=== PATIENT | female | born 1985 | race Caucasian/White ===

== ENCOUNTER 2016-07-31 12:06 | Emergency (ER) | payer OTHER ==
[2016-07-31 12:26] VITALS: BP 139/84; PULSE 77; RESP 18; TEMP 97.9
--- NOTE | 2016-07-31 12:37 | ED ---
Fall HPI - General Chief Complaint: Fall Stated Complaint: fall in shower, hips and rt arm pain Time Seen by Provider: 07/31/16 12:19 Source: patient Mode of arrival: ambulatory - History of Present Illness Initial Comments: Patient is a 31-year-old female chief complaint of bilateral hip pain and right upper arm pain after she fell shower. Site of most of her will body weight when she fell. Patient states that she did not hit her head and denies any loss of consciousness. Patient reports that she drove an hour to work and was sitting at her job at work when she noticed that her hip pain became unbearable. Patient denies any significant bruising over her hips. Patient states that she is able to walk denies any changes in urination or bowel movement. She reports that she has difficulty abducting her right arm. She denies any tenderness with palpation over the clavicle or shoulder. Patient reports that she's had no previous fractures or injuries such as this. - Related Data Home Medications Medication Instructions Recorded Confirmed ALPRAZolam [Xanax] 0.5 mg PO DAILY PRN 07/31/16 07/31/16 Previous Rx's Medication Instructions Recorded Cyclobenzaprine [Flexeril] 10 mg PO TID #15 tab 07/31/16 Allergies Allergy/AdvReac Type Severity Reaction Status Date / Time No Known Allergies Allergy Verified 07/31/16 12:43 Review of Systems ROS Statement: Those systems with pertinent positive or pertinent negative responses have been documented in the HPI. ROS Other: All systems not noted in ROS Statement are negative. Past Medical History Past Medical History: No Reported History History of Any Multi-Drug Resistant Organisms: None Reported Past Surgical History: Orthopedic Surgery Additional Past Surgical History / Comment(s): PT STATES "I HAVE HAD SURGERY TO PUT PINS IN MY FINGER." Past Psychological History: No Psychological Hx Reported Smoking Status: Current every day smoker Past Alcohol Use History: Occasional Past Drug Use History: None Reported General Exam - General Exam Comments Initial Comments: Well-appearing 31-year-old female. Patient is ambulating. No distress. Limitations: no limitations General appearance: alert, in no apparent distress Head exam: Present: atraumatic, normocephalic, normal inspection Eye exam: Present: normal appearance, PERRL, EOMI. Absent: scleral icterus, conjunctival injection, periorbital swelling ENT exam: Present: normal exam, normal oropharynx, mucous membranes moist, TM's normal bilaterally Neck exam: Present: normal inspection. Absent: tenderness, meningismus, lymphadenopathy Respiratory exam: Present: normal lung sounds bilaterally. Absent: respiratory distress, wheezes, rales, rhonchi, stridor Cardiovascular Exam: Present: regular rate, normal rhythm, normal heart sounds. Absent: systolic murmur, diastolic murmur, rubs, gallop, clicks GI/Abdominal exam: Present: soft, normal bowel sounds. Absent: distended, tenderness, guarding, rebound, rigid Extremities exam: Present: normal inspection, full ROM, normal capillary refill. Absent: tenderness, pedal edema, joint swelling, calf tenderness Back exam: Present: normal inspection Neurological exam: Present: alert, oriented X3, CN II-XII intact Psychiatric exam: Present: normal affect, normal mood Skin exam: Present: warm, dry, intact, normal color. Absent: rash Course Vital Signs 07/31/16 12:23 Temperature 97.9 F Pulse Rate 77 Respiratory 18 Rate Blood Pressure 139/84 O2 Sat by Pulse 100 Oximetry Medical Decision Making - Medical Decision Making Patient is a 31-year-old female chief complaint of right shoulder and hip pain after falling the shower. Patient has mild contusion over the upper arm. X- rays reviewed and show no evidence of any acute abnormalities. Patient be discharged with a few muscle relaxers instructed to follow-up with primary care provider symptoms continue persist. Patient also be given a referral for orthopedic. Discuss apply heat and ice over the shoulders and hips. Discussed taking a warm bath with Epsom salts. Patient understands treatment plan will comply. Return parameters were discussed. - Radiology Data Radiology results: report reviewed X-rays reviewed and are negative for any acute process. Disposition Clinical Impression: Contusion of right arm, Contusion, hip Disposition: HOME SELF-CARE Condition: Good Instructions: Fall Prevention for Older Adults (ED) Additional Instructions: Patient advised to rest, apply heat and ice over the areas. Take muscle relaxers as prescribed as well as Motrin and Tylenol. Follow-up with primary care provider if symptoms continue to persist as well as orthopedic physician and shoulder obtained by after one week. Prescriptions: Cyclobenzaprine [Flexeril] 10 mg PO TID #15 tab Referrals: Misbah Guzman MD [Primary Care Provider] - 1-2 days Enoc Goldman MD [STAFF PHYSICIAN] - 1-2 days Time of Disposition: 13:14
--- NOTE | 2016-07-31 12:58 | XR ---
EXAMINATION TYPE: XR humerus RT DATE OF EXAM: 07/31/2016 12:54 PM COMPARISON: NONE HISTORY: Pain post fall The osseous structures are intact and the joint spaces are preserved. IMPRESSION: 1. No acute fracture or dislocation.
--- NOTE | 2016-07-31 12:59 | XR ---
EXAMINATION TYPE: XR pelvis AP view DATE OF EXAM: 07/31/2016 12:54 PM COMPARISON: NONE HISTORY: Pain The osseous structures are intact and the joint spaces are preserved. No acute fracture is seen. Vi sualized bowel gas pattern is nonspecific. Arthropathy of the hips noted. Correlate for femoral aceta bular impingement. Question bilateral acetabular labral tear. Finding appears chronic. IMPRESSION: 1. No acute fracture.
== END 2016-07-31 13:27 | disposition home or self-care (01) ==
LOC: EC 12:06
DX: S70.02XA Contusion of left hip, initial encounter (principal); S70.01XA Contusion of right hip, initial encounter; S40.021A Contusion of right upper arm, initial encounter; F17.200 Nicotine dependence, unspecified, uncomplicated; W18.30XA Fall on same level, unspecified, initial encounter; Y92.89 Other specified places as the place of occurrence of the external cause
CPT/HCPCS: 72170; 99283

== ENCOUNTER → 2016-11-22 | Outpatient (CLI) | payer OTHER ==
--- NOTE | 2016-11-22 16:13 | US ---
EXAMINATION TYPE: US pelvis complete transvag DATE OF EXAM: 11/22/2016 COMPARISON: 11/04/2014 CLINICAL HISTORY: 32-year-old female Pelvic pain R10.2 Menorrhagia N92.0. Patient states having gener alized pelvic pain TECHNIQUE: Transvaginal (TV) and Transabdominal (TA) Date of LMP: 11/15/2016, FINDINGS: Uterus: Anteverted measuring 9.5 x 5.4 x 4.3 cm. The myometrium is heterogeneous. No focal fibroid. A cervical nabothian cyst. Endometrial Stripe: 1.1 cm, mildly thickened for day 7 of the menstrual cycle. Right Ovary: 3.5 x 2.3 x 2.1 cm with a 2.0 cm oval hypoechoic lesion that could represent a follicle with hemorrhage or a corpus luteal cyst. Left Ovary: 2.8 x 2.1 x 2.3 cm with follicular change. No evident adnexal abnormality or cul-de-sac free fluid. IMPRESSION: 1. The endometrial stripe (1.1 cm) is thickened for day 7 of the menstrual cycle. 2. Myometrial heterogeneity could represent diffuse small fibroid change or adenomyosis. 3. Follicular change in both ovaries. A 2 cm follicle/cyst in the right ovary probably has some inter nal hemorrhage.
== END | disposition home or self-care (01) ==
LOC: RADUSWWP 15:29
PROVIDERS: ATTEND Obstetrics & Gynecology
DX: R93.8 Abnormal findings on diagnostic imaging of other specified body structures (principal)
CPT/HCPCS: 76830; 76856

== ENCOUNTER → 2017-01-09 | Outpatient (CLI) | payer OTHER ==
[2017-01-09 12:55] LABS: Basophils % (A) 0 %; CH 28.9; Eosinophils # (A) 0.2 k/uL (0-0.7); Eosinophils % (A) 2 %; HDW 2.22; HGB 13.6 gm/dL (11.4-16.0); Luc # (Auto) 0.17; Luc % (Auto) 2; Lymphocytes # (A) 2.3 k/uL (1.0-4.8); Lymphocytes % (A) 25 %; MCH 29.2 pg (25.0-35.0); MCHC 33.2 g/dL (31.0-37.0); MCV 87.8 fL (80.0-100.0); Mean Platelet Volume 7.5; Monocytes # (A) 0.5 k/uL (0-1.0); Monocytes % (A) 5 %; Neutrophils # (A) 6.2 k/uL (1.3-7.7); Neutrophils % (A) 66 %; RBC 4.67 m/uL (3.80-5.40); RDW 12.5 % (11.5-15.5); WBC 9.4 k/uL (3.8-10.6)
== END | disposition home or self-care (01) ==
LOC: LABPAT 12:13
PROVIDERS: ATTEND Obstetrics & Gynecology
DX: Z01.812 Encounter for preprocedural laboratory examination (principal)
CPT/HCPCS: 85025

== ENCOUNTER 2017-01-11 06:40 | Day surgery (SDC) | payer OTHER ==
[2017-01-09 12:41] VITALS: BMI 33.5
[~2017-01-11 06:40] MED LIST: DEXAMETHASONE SOD PHOSPHATE 10 MG/ML 1 ML VIAL IV ONE; HYDROmorphone 1 MG/ML 1 ML SYRINGE IVP PRN; LACTATED RINGERS 1,000 ML IV SCH; ONDANSETRON 4 MG/2 ML VIAL IVP ONE; Pre Op ABX Message 1 EACH MISC MISCELLANE ONE
[2017-01-11] MEDS ORDERED: LIDOCAINE 1% 20 ML VIAL (10MG/ML) FOR IV START INTRADERMA ONE (07:08)
[2017-01-11] MEDS ORDERED: SUCCINYLCHOLINE CHLORIDE 100 MG/5 ML SYR IV ONE (07:50)
[2017-01-11] MEDS ORDERED: ROCURONIUM BROMIDE 10 MG/ML 10 ML VIAL IV ONE (07:50)
[2017-01-11] MEDS ORDERED: PROPOFOL 10 MG/ML 20 ML VIAL IV ONE (07:50)
[2017-01-11] MEDS ORDERED: fentaNYL (PF) 50 MCG/ML 2 ML AMP ONE (07:50)
[2017-01-11] MEDS ORDERED: MIDAZOLAM 2 MG/2 ML VIAL ONE (07:50)
--- NOTE | 2017-01-11 07:52 | P.HPOB ---
History of Present Illness H&P Date: 01/11/17 Chief Complaint: Pelvic pain Monet is a 31-year-old female with a history of very painful. Symptoms include intense abdominal pain and bloating. She's noted the symptoms have worsened over the last several months and she had a pelvic ultrasound that was generally unremarkable. Due to the cyclicity of her symptoms and that she has been on control pills over a year in no changes in symptoms as well as no change with NSAIDs we're concerned for possibility of endometriosis. She is set scheduled for a diagnostic laparoscopy possible da Bhargav assisted for endometriosis/pelvic pain and treatment of same. Risks/benefits/alternatives to this procedure were discussed with the patient in detail and all questions were answered for her prior to proceeding to the operating room. On physical exam vital signs are stable and afebrile. Heart regular, lungs clear, extremities without pain. Osteopathic exams unremarkable. Abdomen is soft and essentially nontender. Pelvic exam is generally unremarkable other than generalized tenderness. Assessment chronic pelvic pain. Plan diagnostic laparoscopy possible ablation and/or excision of endometriosis. Past Medical History Past Medical History: No Reported History Additional Past Medical History / Comment(s): endometriosis History of Any Multi-Drug Resistant Organisms: None Reported Past Surgical History: Orthopedic Surgery Additional Past Surgical History / Comment(s): PT STATES "I HAVE HAD SURGERY TO PUT PINS IN MY FINGER." Past Anesthesia/Blood Transfusion Reactions: No Reported Reaction Past Psychological History: Anxiety Smoking Status: Current every day smoker Past Alcohol Use History: Occasional Past Drug Use History: None Reported - Past Family History Mother Family Medical History: Cancer Medications and Allergies Home Medications Medication Instructions Recorded Confirmed Type No Known Home Medications [No 01/09/17 01/09/17 History Known Home Medications] Allergies Allergy/AdvReac Type Severity Reaction Status Date / Time No Known Allergies Allergy Verified 01/09/17 12:28 Exam Osteopathic Statement: *. No significant issues noted on an osteopathic structural exam other than those noted in the History and Physical/Consult. - Vital Signs Vital signs: Vital Signs Temp Pulse Resp BP Pulse Ox 01/11/17 06:50 98.2 F 76 16 118/65 98
[2017-01-11] MEDS ORDERED: BUPIVACAINE (PF) 0.25% 30 ML VIAL SQ ONE (08:19)
[2017-01-11] MEDS ORDERED: METHYLENE BLUE 10 MG/ML 1 ML VIAL INJ ONE (08:47)
[2017-01-11] MEDS ORDERED: SODIUM CHLORIDE 0.9% 50 ML with ceFAZolin 2,000 MG IV ONE ×2 (08:54)
[2017-01-11] MEDS ORDERED: ONDANSETRON 4 MG/2 ML VIAL IVP PRN (09:07)
[2017-01-11] MEDS ORDERED: SIMETHICONE 80 MG CHEWABLE PO PRN (09:07)
[2017-01-11] MEDS ORDERED: diphenhydrAMINE 50 MG/ML 1 ML VIAL IVP PRN (09:07)
[2017-01-11] MEDS ORDERED: KETOROLAC 30 MG/ML 1 ML VIAL IVP PRN (09:07)
[2017-01-11] MEDS ORDERED: HYDROcodone/APAP 5-325MG 1 EACH TAB PO PRN ×2 (09:08)
[2017-01-11] MEDS ORDERED: LACTATED RINGERS 1,000 ML IV ONE ×2 (09:09→10:18)
--- NOTE | 2017-01-11 09:17 | P.OP ---
Date of Procedure: 01/11/17 Preoperative Diagnosis: Pelvic pain Postoperative Diagnosis: Same with endometriosis, adhesions, and mild hydrosalpinx Procedure(s) Performed: Diagnostic laparoscopy with da Bhargav assisted with lysis of adhesions, like a full duration of endometriosis, drainage of hydrosalpinx, and chromotubation of fallopian tubes Anesthesia: ARSENIO Surgeon: Jose Solis Estimated Blood Loss (ml): 5 Pathology: other (Endometriosis) Condition: stable Disposition: floor Operative Findings: Significant adhesions and endometriosis are noted. There was endometriosis in multiple implants attached to the anterior uterus and omentum as well as with the left fallopian tube which also had a hydrosalpinx. It is also noted that the right ovary had significant adhesions to the periaortic appendiceal fat and bowel area which were bluntly dissected Description of Procedure: Patient was taken to the operating suite where a general anesthetic was found be adequate. She was prepped and draped in normal sterile fashion placed in dorsal lithotomy position. Initially a speculum was inserted into the vagina cervix was grasped with a Allis clamp sounded and a kroner manipulator was inserted without difficulty. Once this was placed a rubber rubber cath was placed to drain the bladder of urine and the Allis and speculum were removed. Gloves were then changed and attention was turned to the abdominal portion procedure where approximately 2 mL of quarter percent Marcaine was injected very umbilically. Through this injected anesthetic a 5 mm skin incision was made and through this incision under direct visualization with an optical trocar and sleeve the camera was inserted. Once peritoneal placement was assured gas was left fully insufflate the abdomen and patient's placement steep Trendelenburg position. Initially another 5 mm skin incision was made in the left lateral area of the abdomen approximately 10 cm from the umbilicus and slightly inferior to the umbilicus a second port and sleeve were inserted through this incision and observations the pelvis were made. Significant scarring and endometrial implants were noted connecting the omentum to the anterior round ligament area on the left side of her uterus as well as a hydrosalpinx on the left fallopian tube. There is also scarring of bowel to the ovarian complex. We were able to elevate the uterus and then inspected the posterior cul-de-sac which grossly appeared devoid of endometrial implants. Right side however had the periovarian complex area and fallopian tube attached to the periappendiceal fat the appendix however did not appear to have any infection or perforation it just appeared the periappendiceal fat attached to the ovarian complex due to these findings we did incise a second incision site on the right side of the abdomen across from the left incision and 8 mm da Bhargav ports were placed through these incisions. Camera port was then replaced with a da Bhargav port and the Robot was brought in and docked. At this point I broke scrub and went to the robot uterus was then elevated and using blunt dissection and notable sharp dissection the adhesion to the round ligament and omentum were dissected free. Blunt dissection of this tissue was much possible was done to completely free the adhesion. Small hydrosalpinx was noted and using a scissor and electrocautery a stab incision was made to drain this hydrosalpinx. Once this was accomplished blunt dissection of the remainder of the ovary away from the bowel was completed without difficulty. At this point uterus was rotated to the left-hand side and attention was turned to the right portion of the uterus and ovary. Due to proximity to the bowel and appendix as well as the ovary the scissor was removed and a cardia grasper was used to assist in bluntly dissecting the parous appendiceal fat and appendix away from the right ovary and underlying sigmoid colon. This was done in a very gentle fashion to maintain the integrity of both bowel and the appendix. Once it was completely dissected free and due to some tortuosity to both fallopian tubes and hydrosalpinx a dilute methylene blue dye was injected for chromotubation of fallopian tubes. Only a few cc was injected and the dye was noted easily coming through both fallopian tubes indicating patency. With this being concluded and seeing no bleeding from omentum periappendiceal fat or ovarian tissue areas instruments were removed. Due to the fact we did not have an speech and language assistant port we undocked the robot and took it out of the operative field and then suction irrigation completely of the pelvis was completed under laparoscopic guidance. Due to no bleeding being noted and once pelvis was completely irrigated all instruments were removed and gas was allowed to expel from the abdomen. 5 deep breaths were provided during this process and the trochars were then removed. 4-0 Vicryl was then used to close the incision subcuticularly and the remaining 7 mL of quarter percent Marcaine was injected around these incisions. Due to the complexity of the case will plan to admit patient at least for observational status post afternoon may be keeping her until tomorrow depending on how her pain levels are. Sponge, lap, needle counts were all correct 2. Patient was then taken to the recovery room in stable and satisfactory condition.
[2017-01-11] MEDS: MEPERIDINE 50 MG/ML SYRINGE IVP ONE ×2 (09:37→09:45)
[2017-01-11] MEDS ORDERED: KETOROLAC 30 MG/ML 1 ML VIAL IVP ONE (09:40)
[2017-01-11 11:21] VITALS: RESP 16
--- NOTE | 2017-01-11 16:48 | P.DS ---
Providers Expected date of discharge: 01/11/17 Attending physician: Jose Solis Primary care physician: Stated None Hospital Course: Monet is doing very well postop day 0. We did keep her to monitor her as the had a little bit more extensive repair during her surgery due to endometriosis than was initially expected. She is done very well her pain is well-controlled and will plan to discharge her home this evening. Her vital signs are stable and she is afebrile. I did sit down for possible intended 15 minutes and review the findings of the surgery and she'll follow up with me in 10 days to discuss further options for care as needed. Patient Condition at Discharge: Good Plan - Discharge Summary New Discharge Prescriptions: New HYDROcodone/APAP 5-325MG [[place] 5-325] 1 tab PO Q4HR PRN #30 tab PRN Reason: Pain Ibuprofen [Motrin] 600 mg PO Q6HR PRN #30 tab PRN Reason: Pain Discharge Medication List HYDROcodone/APAP 5-325MG [[place] 5-325] 1 tab PO Q4HR PRN #30 tab 01/11/17 [Rx] Ibuprofen [Motrin] 600 mg PO Q6HR PRN #30 tab 01/11/17 [Rx] Follow up Appointment(s)/Referral(s): Jose Solis DO [Doctor of Osteopathic Medicine] - 10 Days Activity/Diet/Wound Care/Special Instructions: No heavy lifting, limit stairs and driving, and pelvic rest. If any high temperatures, heavy bleeding, or severe pain call my office Discharge Disposition: HOME SELF-CARE
[2017-01-11 17:13] VITALS: BP 109/64; PULSE 84; TEMP 98.2
[2017-01-11] MEDS ORDERED: SENNOSIDES-DOCUSATE SODIUM 1 EACH TAB PO SCH (21:00)
== END 2017-01-11 17:30 | disposition home or self-care (01) ==
LOC: OR 06:40 → 4FBP 09:38 → OR 17:30
PROVIDERS: ATTEND Obstetrics & Gynecology
DX: N80.3 Endometriosis of pelvic peritoneum (principal); N73.6 Female pelvic peritoneal adhesions (postinfective); N70.11 Chronic salpingitis; F17.200 Nicotine dependence, unspecified, uncomplicated
CPT/HCPCS: 81025; 88305; 49329; 49322; 58662; J2250; J1200; J1100; J2175; J2405; Q9968; J3010; J1885; J0690; J0330; J2704

== ENCOUNTER 2023-07-06 00:34 | Emergency (ER) | payer OTHER ==
[2023-07-06 01:14] VITALS: BP 143/87; PULSE 104; RESP 22; TEMP 98.7
--- NOTE | 2023-07-06 02:07 | ED ---
ENT HPI - General Chief complaint: ENT Stated complaint: ear ache Source: patient Mode of arrival: ambulatory Limitations: no limitations - History of Present Illness Initial comments: 38-year-old female presented to the ED with complaints of right ear pain. Patient reports that she was seen at an urgent care 2 days ago and was prescribed amoxicillin which she has been taking as prescribed. States due to this not improving after 1 day of antibiotic use went to another hospital yesterday and was prescribed eardrops. Since then reports that since pain has not improved over the last 2 days of using antibiotics presented to the ED for further evaluation. No fever or chills. No other complaints at this time. - Related Data Previous Rx's Medication Instructions Recorded HYDROcodone/APAP 5-325MG [[place] 1 tab PO Q4HR PRN #30 tab 01/11/17 5-325] Ibuprofen [Motrin] 600 mg PO Q6HR PRN #30 tab 01/11/17 Acetaminophen Tab [Tylenol] 500 mg PO Q6H PRN #40 tablet 07/06/23 Allergies Allergy/AdvReac Type Severity Reaction Status Date / Time No Known Allergies Allergy Verified 07/06/23 00:43 Review of Systems ROS Statement: Those systems with pertinent positive or pertinent negative responses have been documented in the HPI. ROS Other: All systems not noted in ROS Statement are negative. Past Medical History Past Medical History: No Reported History Additional Past Medical History / Comment(s): endometriosis History of Any Multi-Drug Resistant Organisms: None Reported Past Surgical History: Orthopedic Surgery Additional Past Surgical History / Comment(s): PT STATES "I HAVE HAD SURGERY TO PUT PINS IN MY FINGER." Past Psychological History: No Psychological Hx Reported Smoking Status: Former smoker Past Alcohol Use History: Occasional Past Drug Use History: None Reported General Exam Limitations: no limitations General appearance: alert, in no apparent distress ENT exam: Present: other (There is some swelling of the external ear canal and unable to visualize TM secondary to this. Erythema of the outer ear as well. No erythema or tenderness to palpation to the mastoid process.) Neck exam: Present: normal inspection Respiratory exam: Present: normal lung sounds bilaterally Cardiovascular Exam: Present: regular rate, normal rhythm GI/Abdominal exam: Present: soft Neurological exam: Present: alert, oriented X3 Skin exam: Present: warm, dry Course Vital Signs 07/06/23 00:38 Temperature 98.7 F Pulse Rate 104 H Respiratory 22 Rate Blood Pressure 143/87 O2 Sat by Pulse 98 Oximetry Medical Decision Making - Medical Decision Making Was pt. sent in by a medical professional or institution (ROSITA Leo, MANAGER TELEMETRY, urgent care, hospital, or prison...) When possible be specific @ -No Did you speak to anyone other than the patient for history (EMS, parent, family, police, friend...)? What history was obtained from this source @ -No Did you review nursing and triage notes (agree or disagree)? Why? @ -I reviewed and agree with nursing and triage notes Were old charts reviewed (outside hosp., previous admission, EMS record, old EKG, old radiological studies, urgent care reports/EKG's, prison records)? Report findings @ -No old charts were reviewed Differential Diagnosis (chest pain, altered mental status, abdominal pain women, abdominal pain men, vaginal bleeding, weakness, fever, dyspnea, syncope, headache, dizziness, GI bleed, back pain, seizure, CVA, palpatations, mental health, musculoskeletal)? @ -Otitis externa, otitis media, malignant otitis externa. This not meant to be all-inclusive list. EKG interpreted by me (3pts min.). @ -As above X-rays interpreted by me (1pt min.). @ -None done CT interpreted by me (1pt min.). @ -None done U/S interpreted by me (1pt. min.). @ -None done What testing was considered but not performed or refused? (CT, X-rays, U/S, labs)? Why? @ -None What meds were considered but not given or refused? Why? @ -None Did you discuss the management of the patient with other professionals (professionals i.e. ROSITA Leo, MANAGER TELE[employer]RY, lab, RT, psych nurse, social service agency director, body line finisher, teacher, learning officer, immigration case worker)? Give summary @ -No Was smoking cessation discussed for >3mins.? @ -No Was critical care preformed (if so, how long)? @ -No Were there social determinants of health that impacted care today? How? (Homelessness, low income, unemployed, alcoholism, drug addiction, transportation, low edu. Level, literacy, decrease access to med. care, detention, rehab)? @ -No Was there de-escalation of care discussed even if they declined (Discuss DNR or withdrawal of care, Hospice)? DNR status @ -No What co-morbidities impacted this encounter? (DM, HTN, Smoking, COPD, CAD, Cancer, CVA, ARF, Chemo, Hep., AIDS, mental health diagnosis, sleep apnea, morbid obesity)? @ -None Was patient admitted / discharged? Hospital course, mention meds given and route, prescriptions, significant lab abnormalities, going to OR and other pertinent info. @ -Discharge 38-year-old female presents to the ED with complaints of right ear infection. Has been on antibiotics for 2 days and despite this reports no improvement prompting presentation to the ED for further evaluation. On exam no mastoid process tenderness to palpation, warmth, erythema. Patient reassured. Advised to continue using antibiotics as prescribed. Discharged home in stable condition advised to follow-up with her PCP. Undiagnosed new problem with uncertain prognosis? @ -No Drug Therapy requiring intensive monitoring for toxicity (Heparin, Nitro, Insulin, Cardizem)? @ -No Were any procedures done? @ -No Diagnosis/symptom? @ -Otitis media, otitis externa Acute, or Chronic, or Acute on Chronic? @ -Acute Uncomplicated (without systemic symptoms) or Complicated (systemic symptoms)? @ -Uncomplicated Side effects of treatment? @ -No Exacerbation, Progression, or Severe Exacerbation? @ -No Poses a threat to life or bodily function? How? (Chest pain, [place], [place], pneumonia, PE, COPD, DKA, ARF, appy, cholecystitis, CVA, Diverticulitis, Homicidal, Suicidal, threat to staff... and all critical care pts) @ -No Disposition Clinical Impression: Otitis media, Otitis externa Disposition: HOME SELF-CARE Condition: Good Instructions (If sedation given, give patient instructions): Earache (ED) Additional Instructions: Please return to the Emergency Department if symptoms worsen or any other concerns. Please continue taking antibiotics as prescribed. Follow-up with your primary care provider. Prescriptions: Acetaminophen Tab [Tylenol] 500 mg PO Q6H PRN #40 tablet PRN Reason: Pain Is patient prescribed a controlled substance at d/c from ED?: No Referrals: Alison Landeros MD [Primary Care Provider] - 1-2 days Time of Disposition: 02:10
[2023-07-06] MEDS: ACET/COD 300 MG/30 MG STARTER PACK 6 TAB BTL PO STA (02:14)
== END 2023-07-06 02:17 | disposition home or self-care (01) ==
LOC: EC 00:34
DX: H66.91 Otitis media, unspecified, right ear (principal); H60.91 Unspecified otitis externa, right ear; Z87.891 Personal history of nicotine dependence
CPT/HCPCS: 99282